=== PATIENT | male | born 1955 | race African-American/Black ===

== ENCOUNTER 2017-02-15 20:28 | Emergency (ER) | payer MEDICAID, OTHER ==
[~2017-02-15] VITALS: Ht 180.3 cm; Wt 107.5 kg
[~2017-02-15 20:28] MED LIST: ASPIRIN81 MG ORAL; BETAPACE80 MG PO; BRIMONIDINE TART5 ML BOTH EYES; DOCUSATE SODIU100 MG ORAL; HUMULIN R100 UNIT/1 SUBQ; ISOSORBIDE; LANTUS5 UNITS SUBQ; LIPITOR80 MG ORAL; MS CONTIN60 MG ORAL; NITROSTAT0.4 M1 SL; PLAVIX75 MG ORAL; [UNRECOGNIZED DRUG - OTHER]; imdur
[2017-02-15 20:55] VITALS: BP 127/71
[2017-02-15] MEDS ORDERED: Morphine Sulfate 4mg/ml Inj IVP ONE (21:15)
[2017-02-15 21:19] LABS: BASOPHILS % (AUTO) 0.5 % (0.0-2.0); EOSINOPHILS % (AUTO) 1.9 % (0.0-3.0); LYMPHOCYTES % (AUTO) 32.3 % (20.0-45.0); MEAN CORPUSCULAR HGB CONC 31.1 G/DL (32.0-36.0); MEAN CORPUSCULAR VOLUME 77 FL (80-99); MEAN PLATELET VOLUME 5.7 FL (6.5-10.1); MONOCYTES % (AUTO) 11.7 % (1.0-10.0); NEUTROPHILS % (AUTO) 53.6 % (45.0-75.0); PLATELET COUNT 232 K/UL (150-450); RED BLOOD COUNT 3.95 M/UL (4.70-6.10); RED CELL DISTRIBUTION WIDTH 22.3 % (11.6-14.8); WHITE BLOOD COUNT 4.1 K/UL (4.8-10.8)
[2017-02-15 21:34] LABS: TROPONIN I < 0.30 ng/mL (<=0.30)
[2017-02-15 21:37] LABS: ALANINE AMINOTRANSFERASE 15 U/L (3-41); ALBUMIN/GLOBULIN RATIO 1.1 (1.0-2.7); ASPARTATE AMINO TRANSFERASE 17 U/L (5-40); CALCIUM 9.3 mg/dL (8.6-10.2); CARBON DIOXIDE 22 mEQ/L (20-30); GLOMERULAR FILTRATION RATE > 60 mL/min (>60); HEMOLYSIS 1; TOTAL PROTEIN 7.6 g/dL (6.6-8.7)
[2017-02-15 21:38] LABS: ANION GAP 14 (5-15); CHLORIDE 104 mEQ/L (98-107); POTASSIUM 3.9 mEQ/L (3.4-4.9); SODIUM 140 mEQ/L (135-145)
[2017-02-15 21:48] LABS: CKMB 3.6 ng/mL (< 6.7)
--- NOTE | 2017-02-15 21:49 | Emergency Room Report ---
History of Present Illness General Chief Complaint: Chest Pain Source: Medical Record Present Illness HPI 62YOM with chest pain for 5 hours. Was getting out of car, had sharp pain radiating from back to left side of chest with nausea/vomiting x 4 times. No assoc SOB. Was given 4x nitro spray by home health pet care worker without improvement. Has PICC line. Gets morphine 4mg Q6 hours at home. 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 Takes daily. Has pacer. Previous multi year cigar smoker Also c/o dysuria, hematuria. States is on Levofloxacin currently. Allergies: Coded Allergies: METOPROLOL (Verified Allergy, Mild, 03/21/15) PENICILLIN (Verified Allergy, Mild, 03/21/15) Patient History Past Medical History: VT, CAD, CVA/TIA Past Surgical History: pacemaker Pertinent Family History: none Social History: Reports: smoking, Denies: alcohol use, drug use Immunizations: UTD Reviewed Nursing Documentation: PMH: Agreed, PSxH: Agreed Nursing Documentation-PMH Hx Asthma: No Hx COPD: No Hx Diabetes: Yes Hx Cancer: No Hx Gastrointestinal Problems: No Hx Neurological Problems: Yes Hx Cerebrovascular Accident: Yes - Stroke in 2009 Hx Transient Ischemic Attacks: No Hx Dementia: No Hx Parkinson's Disease: No Hx Meningitis: No Hx Encephalitis: No Hx Seizures: No Hx Epilepsy: No Hx Cerebral Palsy: No Hx Amyotrophic Lat Sclerosis: No Hx Guillian-[place] Syndrome: No Hx Paralysis: No Hx Peripheral Neuropathy: No Hx Spinal Cord Injury: No Hx Head Trauma: No Hx Traumatic Brain Injury: No Hx Memory Loss: No Hx Concentration Difficulty: No Hx Speech Problem: No Hx Tremors: No Hx Vertigo: No Hx Dizziness: No Hx Syncope: Yes Hx Headaches: No Hx Aphasia: No Hx Dysphasia: No Hx Numbness: No Hx Weakness: No Hx Fatigue: No Hx Neurologic Surgery: No Hx Brain Shunt: No Review of Systems All Other Systems: negative except mentioned in HPI Physical Exam Vital Signs Date Time Temp Pulse Resp B/P Pulse Ox O2 Delivery O2 Flow Rate FiO2 02/15/17 20:44 97.9 80 18 127/71 98 Room Air Sp02 EP Interpretation: reviewed, normal General Appearance: normal inspection, well appearing, no apparent distress, alert, GCS 15, non-toxic Head: normocephalic, atraumatic Eyes: bilateral eye EOMI, bilateral eye PERRL ENT: normal ENT inspection, hearing grossly normal, normal voice Neck: normal inspection, full range of motion, supple, no bony tend Respiratory: normal inspection, lungs clear, normal breath sounds, no respiratory distress, no retraction, no wheezing Cardiovascular #1: regular rate, rhythm, no edema Gastrointestinal: normal inspection, normal bowel sounds, non tender, soft, no guarding, no hernia Genitourinary: no CVA tenderness Musculoskeletal: normal inspection, back normal, normal range of motion, Luiz' s Sign negative Neurologic: normal inspection, alert, oriented x3, responsive, conference planner III-XII nml as tested, motor strength/tone normal, speech normal Skin: normal inspection, normal color, no rash Medical Decision Making Diagnostic Impression: Primary Impression: Chest pain Qualified Codes: R07.9 - Chest pain, unspecified Additional Impressions: Dysuria UTI (urinary tract infection) Qualified Codes: N30.01 - Acute cystitis with hematuria Drug-seeking behavior ER Course Chest pain - VSS. Afebrile. - Labs: No leuks. H&H stable. Troponin 0. - ECG is AV dual paced. No ischemia. - CXR: No PTX. No CHF. Mediastinum not >50% wider than CXR - IV morphine given with resolution of chest pain - Patient ambulating back and forth to bathroom, no acute distress Given complex history of HTN/DM/HLD and alleged previous bypass/stents and on dual-anti platelet therapy I attempted to endorse patient to admission to Dr Oconnor with [facility]. Dr Oconnor states patient was just admitted to [facility] within last 2 weeks, possibly had negative stress/cath tests, and history of drug seeking behavior. Patient states he didnt have stress/cath but that they "Wanted to do an ablation " but apparently didnt. Dr Oconnor refused patient for admission at this time. Given negative troponin with chest pain within last 4 hours, unlikely ACS at this time Patient has UTI on UA but is already on Levofloxacin. If Urine Cx suggests resistance, we will contact patient to possibly change Abx. Will DC patient with recommendation for stress test/cardiology followup EKG Diagnostic Results Rate: other - AV paced ST Segments: no acute changes ASA given to the pt in ED: No Rhythm Strip Diag. Results EP Interpretation: yes Rate: 90 Rhythm: NSR, no PVC's, no ectopy Chest X-Ray Diagnostic Results Chest X-Ray Diagnostic Results : Chest X-Ray Ordered: Yes # of Views/Limited/Complete: 1 View Indication: Chest Pain EP Interpretation: Yes Interpretation: no consolidation, no pneumothorax, no acute cardiopulmonary disease Impression: No acute disease Interpreting ER Provider: Electronically signed by Dr Sandoval Last Vital Signs Date Time Temp Pulse Resp B/P Pulse Ox O2 Delivery O2 Flow Rate FiO2 02/15/17 20:44 97.9 80 18 127/71 98 Room Air Status: improved Disposition: HOME, SELF-CARE Referrals: [facility],REFERRING (PCP) NASIR SANDOVAL M.D. Feb 15, 2017 21:49
[2017-02-15 22:31] LABS: APPEARANCE,URINE CLEAR; KETONES,URINE NEGATIVE (NEGATIVE); LEUKOCYTE ESTERASE ,URINE 2+ (NEGATIVE); NITRITE,URINE NEGATIVE (NEGATIVE); PH,URINE 5 (4.5-8.0); PROTEIN,URINE NEGATIVE (NEGATIVE); UROBILINOGEN,URINE 1 MG/DL (0.0-1.0)
[2017-02-15 22:49] LABS: BACTERIA,URINE FEW /HPF
[2017-02-15 22:55] VITALS: BP 117/73
[2017-02-16] MEDS ORDERED: Metoclopramide 10mg/2ml Inj ONE (00:41)
[2017-02-16] MEDS ORDERED: Metoclopramide 10mg/2ml Inj IVP ONE (00:45)
[2017-02-16 00:58] VITALS: BP 109/68
--- NOTE | 2017-02-16 13:35 | Diagnostic Imaging Report ---
Indication: Chest pain Technique: One view of the chest Comparison: 06/20/2015 Findings: Suboptimal inspiration. Left chest AICD is again demonstrated. Median sternotomy sutures are again demonstrated. Right arm PICC is now present. Lungs and pleural spaces are clear. Impression: No acute process. Findings as noted This agrees with the preliminary interpretation provided by the emergency room physician
--- NOTE | 2017-02-16 16:52 | Cardiology Report ---
APPROVED REPORT EKG Measurement Heart [id number] Abnormal ECG Atrioventricular Sequential Pacemaker
--- NOTE | 2017-02-16 21:40 | Consultation ---
DATE OF CONSULTATION: 02/16/2017 INTERNAL MEDICINE CONSULTATION HISTORY OF PRESENT ILLNESS: This is a 62-year-old male that I was contacted for admission. On my evaluation, I noted the patient has had multiple admissions most recently at [facility] with similar condition. He has been ruled out as having an active coronary issue. The patient has at home and takes morphine at home 4 mg on a daily basis. He reports history of previous WI and CVA. He has a permanent pacemaker/AICD. PAST MEDICAL HISTORY: WI, CAD, CVA, and permanent pacemaker. ALLERGIES: To metoprolol and penicillin. REVIEW OF SYSTEMS: The patient denies any headaches, hematemesis, or melena. PHYSICAL EXAMINATION: GENERAL: Reveals a 62-year-old male. VITAL SIGNS: Blood pressure 120/70, heart rate , respirations are 18. HEENT: Unremarkable. CHEST: Shows clear breath sounds bilaterally. ABDOMEN: Soft. EXTREMITIES: There is no edema. NEUROLOGIC: Nonfocal. LABORATORY DATA: Lab testing shows negative troponin. Remaining labs are noncontributory. Hemoglobin is low. IMPRESSION: 1. Atypical chest pain. 2. Chronic pain requiring IV narcotics at home. DISCUSSION: At this time, the patient is stable for discharge. He has had a cardiac workup yesterday which is negative for any acute ischemic events. The patient will follow up with primary physician. Delbert Oconnor M.D. DR: JENNIFER JOB#: [id number] CC:
== END 2017-02-16 00:58 | disposition home or self-care (01) ==
LOC: EMR 20:53
DX: R07.9 Chest pain, unspecified (principal); N39.0 Urinary tract infection, site not specified; I25.10 Atherosclerotic heart disease of native coronary artery without angina pectoris; E11.9 Type 2 diabetes mellitus without complications; I25.2 Old myocardial infarction; Z86.73 Personal history of transient ischemic attack (TIA), and cerebral infarction without residual deficits; Z88.0 Allergy status to penicillin; Z88.8 Allergy status to other drugs, medicaments and biological substances; Z79.01 Long term (current) use of anticoagulants; Z79.82 Long term (current) use of aspirin; Z87.891 Personal history of nicotine dependence
CPT/HCPCS: 36415; 71010; 80053; 80300; 81003; 82550; 82553; 83880; 84484; 85025; 93005; 99283; J2270; J2405; J2765

== ENCOUNTER 2017-07-14 00:57 | Emergency (ER) | payer OTHER ==
[~2017-07-14] VITALS: Ht 180.3 cm; Wt 104.3 kg
[2017-07-14 01:38] VITALS: BP 154/94
--- NOTE | 2017-07-14 01:50 | Emergency Room Report ---
History of Present Illness General Chief Complaint: Chest Pain Source: Patient, Medical Record Present Illness HPI Is a 62-year-old male with a history of CAD with pacemaker/AICD. He presents with chief complaint of chest pain. He said onset was about 2 hours ago. Initially to know she did not take any medication but told me that he took 3 sprays of nitroglycerin without any relief. Also is fairly taking aspirin. Denies any fever or chills. No radiation. He drove himself here. Pain is 8/ 10. Localized the left chest area. Radiating to his neck. Allergies: Coded Allergies: METOPROLOL (Verified Allergy, Mild, 03/21/15) PENICILLIN (Verified Allergy, Mild, 03/21/15) Patient History Past Medical History: see triage record, old chart reviewed, HTN, CAD Past Surgical History: pacemaker Pertinent Family History: none Social History: Denies: smoking Immunizations: other Reviewed Nursing Documentation: PMH: Agreed, PSxH: Agreed Nursing Documentation-PMH Hx Asthma: No Hx COPD: No Hx Diabetes: Yes Hx Cancer: No Hx Gastrointestinal Problems: No Hx Neurological Problems: Yes Hx Cerebrovascular Accident: Yes - Stroke in 2008 Hx Transient Ischemic Attacks: No Hx Dementia: No Hx Parkinson's Disease: No Hx Meningitis: No Hx Encephalitis: No Hx Seizures: No Hx Epilepsy: No Hx Cerebral Palsy: No Hx Amyotrophic Lat Sclerosis: No Hx Guillian-[place] Syndrome: No Hx Paralysis: No Hx Peripheral Neuropathy: No Hx Spinal Cord Injury: No Hx Head Trauma: No Hx Traumatic Brain Injury: No Hx Memory Loss: No Hx Concentration Difficulty: No Hx Speech Problem: No Hx Tremors: No Hx Vertigo: No Hx Dizziness: No Hx Syncope: Yes Hx Headaches: No Hx Aphasia: No Hx Dysphasia: No Hx Numbness: No Hx Weakness: No Hx Fatigue: No Hx Neurologic Surgery: No Hx Brain Shunt: No Review of Systems Eye: Denies: eye pain, blurred vision ENT: Denies: ear pain, nose congestion, throat swelling Respiratory: Denies: cough, shortness of breath Cardiovascular: Reports: chest pain, Denies: palpitations Gastrointestinal: Denies: abdominal pain, diarrhea, nausea, vomiting Musculoskeletal: Denies: back pain, joint pain Skin: Denies: rash Neurological: Denies: headache, numbness Endocrine: Denies: increased thirst, increased urine Hematologic/Lymphatic: Denies: easy bruising All Other Systems: negative except mentioned in HPI Physical Exam Vital Signs Date Time Temp Pulse Resp B/P (MAP) Pulse Ox O2 Delivery O2 Flow Rate FiO2 07/14/17 01:10 97.3 108 27 117/72 97 Room Air vitals normal except for tachycardia Sp02 EP Interpretation: reviewed, normal General Appearance: well appearing, no apparent distress, alert Head: normocephalic, atraumatic Eyes: bilateral eye PERRL, bilateral eye EOMI ENT: hearing grossly normal, normal pharynx Neck: full range of motion, supple, no meningismus Respiratory: chest non-tender, lungs clear, normal breath sounds Cardiovascular #1: regular rate, rhythm, no murmur Gastrointestinal: normal bowel sounds, non tender, no mass, no organomegaly, no bruit, non-distended Musculoskeletal: back normal, gait/station normal, normal range of motion, other - PICC line right arm Neurologic: alert, oriented x3 Psychiatric: mood/affect normal Skin: warm/dry Medical Decision Making Diagnostic Impression: Primary Impression: Drug-seeking behavior Additional Impressions: Chest pain Qualified Codes: R07.9 - Chest pain, unspecified Opioid dependence Qualified Codes: F11.20 - Opioid dependence, uncomplicated ER Course Patient presents with chest pain. He said he came from home but he brought a suitcase with him. He has multiple EKG umanzor on his chest. He claimed this was from a couple months ago when he was admitted to [facility] for pneumonia. Said that he normally doesn't get chest pain. He is asking for Dilaudid. I ask him what his getting the PICC line for. He said that his for IV antibiotics. I have seen this patient before both here and at [place]. He has a history of opioid dependence and get monthly prescription for morphine from [facility]. I called [facility] and patient was there on July 08. Workup was negative. I suspect that he goes to different hospitals for his opioid dependency. When I ask about his pain medication, he said he get morphine through the PICC line every 6 hours. When I ask about the July 08 visit to [facility], he said he forgot. I told patient that we will do blood work to make sure there is no elevated troponin. I would not give him any IV narcotic. Per nursing staff, he has been very rude to the x-ray tech and nursing staff since he checked in. When I told him that I won't off any narcotic, patient took his monitors and said that he is leaving. He is competent to make that decision. Lab Results Impression labs unremarkable EKG Diagnostic Results Rate: normal Rhythm: NSR ST Segments: no acute changes - Paced rhythm Rhythm Strip Diag. Results Rhythm Strip Time: 03:01 EP Interpretation: yes Rate: 90 Rhythm: NSR, no PVC's, no ectopy Chest X-Ray Diagnostic Results Chest X-Ray Diagnostic Results : Chest X-Ray Ordered: Yes # of Views/Limited/Complete: 1 View Indication: Chest Pain EP Interpretation: Yes Interpretation: no consolidation, no effusion, no pneumothorax, no acute cardiopulmonary disease Impression: No acute disease Electronically Signed by: Ronny Pierre MD Last Vital Signs Date Time Temp Pulse Resp B/P (MAP) Pulse Ox O2 Delivery O2 Flow Rate FiO2 07/14/17 01:38 97.3 100 17 154/94 97 Room Air Status: unchanged Disposition: AGAINST MEDICAL ADVICE Condition: Stable Referrals: [facility],REFERR[facility] (PCP) RONNY PIERRE M.D. Jul 14, 2017 01:50
[2017-07-14 01:53] VITALS: BP 154/94
[2017-07-14 01:54] LABS: BASOPHILS % (AUTO) 0.7 % (0.0-2.0); EOSINOPHILS % (AUTO) 1.1 % (0.0-3.0); LYMPHOCYTES % (AUTO) 9.9 % (20.0-45.0); MEAN CORPUSCULAR HEMOGLOBIN 22.2 PG (27.0-31.0); MEAN CORPUSCULAR HGB CONC 28.7 G/DL (32.0-36.0); MEAN CORPUSCULAR VOLUME 77 FL (80-99); MEAN PLATELET VOLUME 7.9 FL (6.5-10.1); MONOCYTES % (AUTO) 11.2 % (1.0-10.0); NEUTROPHILS % (AUTO) 77.1 % (45.0-75.0); PLATELET COUNT 290 K/UL (150-450); RED BLOOD COUNT 5.01 M/UL (4.70-6.10); RED CELL DISTRIBUTION WIDTH 23.3 % (11.6-14.8); WHITE BLOOD COUNT 7.8 K/UL (4.8-10.8)
[2017-07-14 02:26] LABS: ANION GAP 11 mmol/L (5-15); CALCIUM 9.1 MG/DL (8.5-10.1); CARBON DIOXIDE 24 MMOL/L (21-32); CHLORIDE 106 MMOL/L (98-107); CREATININE 1.1 MG/DL (0.55-1.30); GLOMERULAR FILTRATION RATE > 60 mL/min (>60); POTASSIUM 3.7 MMOL/L (3.5-5.1); SODIUM 141 MMOL/L (136-145)
[2017-07-14 02:39] LABS: ALANINE AMINOTRANSFERASE 27 U/L (12-78); ASPARTATE AMINO TRANSFERASE 19 U/L (15-37); CKMB 2.6 NG/ML (0.0-3.6); TOTAL PROTEIN 7.8 G/DL (6.4-8.2)
--- NOTE | 2017-07-14 10:03 | Diagnostic Imaging Report ---
Indication: Chest pain Technique: One view of the chest Comparison: 02/15/2017 Findings: Somewhat better but still suboptimal inspiration currently. Lungs and pleural spaces are clear. Left chest AICD is again demonstrated. There is no other significant interim change Impression: No acute process
--- NOTE | 2017-07-15 11:29 | Cardiology Report ---
APPROVED REPORT EKG Measurement Heart [id number] 256P [id number] Demand ventricular pacing Abnormal ECG
== END 2017-07-14 01:55 | disposition left against medical advice (07) ==
LOC: EMR 01:21
DX: R07.9 Chest pain, unspecified (principal); Z76.5 Malingerer [conscious simulation]; F11.20 Opioid dependence, uncomplicated; I25.10 Atherosclerotic heart disease of native coronary artery without angina pectoris; Z95.810 Presence of automatic (implantable) cardiac defibrillator; Z88.0 Allergy status to penicillin; Z88.8 Allergy status to other drugs, medicaments and biological substances; E11.9 Type 2 diabetes mellitus without complications; Z86.73 Personal history of transient ischemic attack (TIA), and cerebral infarction without residual deficits
CPT/HCPCS: 36415; 71010; 80053; 80307; 82550; 82553; 84484; 85025; 93005